=== PATIENT | male | born 1970 | race African-American/Black ===

== ENCOUNTER 2018-09-26 15:47 | Inpatient (IN) | payer MEDICAID ==
[~2018-09-26] VITALS: Ht 172.7 cm; Wt 78.0 kg
[~2018-09-26 15:47] MED LIST: DILT60TA35 PO; LOSA100T3 PO; METO25TA6 PO; REN800 PO
[2018-09-26] MEDS ORDERED: CLON0.3T MT (16:18)
[2018-09-26 19:28] LABS: BASOPHILS % 0.9 % (0.0-2.0); EOSINOPHILS % 3.8 % (0.0-5.0); HEMATOCRIT. 26.1 % (42.0-52.0); HEMOGLOBIN. 8.6 g/dL (14.0-18.0); LYMPHOCYTES % 23.5 % (20.0-50.0); MEAN CORPUSCULAR HEMOGLOBIN 28.4 pg (28.0-32.0); MEAN CORPUSCULAR VOLUME 86.7 fL (80.0-94.0); MEAN PLATELET VOLUME 7.7 fl (7.4-10.4); MONOCYTES % 8.5 % (2.0-8.0); NEUTROPHILS % 63.3 % (40.0-76.0); PLATELET 197 x1000/uL (130-400); RED BLOOD CELL COUNT 3.01 mill/uL (4.7-6.1); RED CELL DISTRIBUTION WIDTH 23.2 % (11.6-14.6)
[2018-09-26 19:34] LABS: CHLORIDE 95 mEq/L (98-107)
[2018-09-26 19:44] LABS: TOTAL IRON BINDING CAPACITY 188 ug/dL (250-450)
[2018-09-26] MEDS ORDERED: POTASSIUM CHLORIDE 20MEQ TABLET SR PO ONE (21:15)
[2018-09-26 22:10] LABS: PLATELET ESTIMATE NORMAL
[2018-09-27] VITALS (7 sets, daily range): BP systolic 19–194; BP diastolic 81–98
[2018-09-27] MEDS ORDERED: CLONIDINE 0.1MG TABLET PO ONE
[2018-09-27] MEDS ORDERED: CLONIDINE 0.3MG TABLET PO PRN (02:15)
[2018-09-27] MEDS ORDERED: CLONIDINE 0.3MG TABLET PO SCH ×2 (02:43→06:00)
[2018-09-27] MEDS: HYDROCODONE/ACETAMINOPHEN 5/325MG TABLET PO PRN ×2 (02:57→16:45)
[2018-09-27] MEDS: CLONIDINE 0.3MG TABLET PO SCH ×3 (02:58→21:14)
[2018-09-27] MEDS: FOLIC ACID/VITAMIN B COMP W-C TABLET PO SCH (08:43)
[2018-09-27] MEDS: SEVELAMER CARBONATE 800 MG TABLET PO SCH ×3 (08:43→17:18)
[2018-09-27] MEDS: METOPROLOL TARTRATE 50MG TABLET PO SCH ×2 (08:44→21:16)
[2018-09-27] MEDS: AMLODIPINE 10MG TABLET PO SCH (08:44)
[2018-09-27 13:09] LABS: BASOPHILS % 1.1 % (0.0-2.0); EOSINOPHILS % 4.5 % (0.0-5.0); HEMOGLOBIN. 7.5 g/dL (14.0-18.0); LYMPHOCYTES % 21.1 % (20.0-50.0); MEAN CORPUSCULAR HEMOGLOBIN 28.7 pg (28.0-32.0); MEAN CORPUSCULAR VOLUME 88.3 fL (80.0-94.0); MONOCYTES % 9.7 % (2.0-8.0); NEUTROPHILS % 63.6 % (40.0-76.0); PLATELET 148 x1000/uL (130-400); RED BLOOD CELL COUNT 2.61 mill/uL (4.7-6.1); RED CELL DISTRIBUTION WIDTH 22.5 % (11.6-14.6)
[2018-09-28] VITALS: BP 135/64
[2018-09-28 04:00] VITALS: BP 153/70
[2018-09-28 08:00] VITALS: BP 161/88
[2018-09-28] MEDS: FOLIC ACID/VITAMIN B COMP W-C TABLET PO SCH (08:17)
[2018-09-28] MEDS: SEVELAMER CARBONATE 800 MG TABLET PO SCH ×3 (08:17→18:45)
[2018-09-28 08:39] LABS: BASOPHILS % 1.2 % (0.0-2.0); EOSINOPHILS % 5.4 % (0.0-5.0); HEMATOCRIT. 23.1 % (42.0-52.0); HEMOGLOBIN. 7.5 g/dL (14.0-18.0); LYMPHOCYTES % 23.5 % (20.0-50.0); MEAN CORPUSCULAR HEMOGLOBIN 28.7 pg (28.0-32.0); MEAN CORPUSCULAR VOLUME 88.5 fL (80.0-94.0); MEAN PLATELET VOLUME 8.2 fl (7.4-10.4); MONOCYTES % 7.4 % (2.0-8.0); NEUTROPHILS % 62.5 % (40.0-76.0); PLATELET 137 x1000/uL (130-400); RED BLOOD CELL COUNT 2.61 mill/uL (4.7-6.1); RED CELL DISTRIBUTION WIDTH 22.8 % (11.6-14.6)
[2018-09-28] MEDS: METOPROLOL TARTRATE 50MG TABLET PO SCH ×2 (08:54→21:59)
[2018-09-28] MEDS: AMLODIPINE 10MG TABLET PO SCH (08:54)
[2018-09-28 12:00] VITALS: BP 163/82
[2018-09-28] MEDS: CLONIDINE 0.3MG TABLET PO SCH ×2 (13:57→21:59)
[2018-09-28 16:00] VITALS: BP 162/90
[2018-09-28] MEDS ORDERED: DIPHENHYDRAMINE 50MG/ML VIAL IV NR (16:45)
[2018-09-28 20:00] VITALS: BP 167/87
[2018-09-29] VITALS: BP 157/80
[2018-09-29 04:00] VITALS: BP 156/80
[2018-09-29] MEDS: CLONIDINE 0.3MG TABLET PO SCH (06:29)
[2018-09-29 08:13] VITALS: BP 162/88
[2018-09-29] MEDS: FOLIC ACID/VITAMIN B COMP W-C TABLET PO SCH (08:14)
[2018-09-29] MEDS: SEVELAMER CARBONATE 800 MG TABLET PO SCH (08:14)
[2018-09-29] MEDS: AMLODIPINE 10MG TABLET PO SCH (08:15)
[2018-09-29] MEDS: METOPROLOL TARTRATE 50MG TABLET PO SCH (08:15)
[2018-09-29 11:03] LABS: HEMATOCRIT 24.9 % (42.0-52.0); HEMOGLOBIN 8.3 g/dL (14.0-18.0)
[2018-09-29 11:11] LABS: INR 1.2; PROTHROMBIN TIME 11.7 sec (9.1-11.1)
[2018-09-29 11:12] VITALS: BP 139/65
[2018-09-29 12:00] VITALS: BP 139/65
== END 2018-09-29 12:20 | disposition home or self-care (01) | DRG 194 ==
LOC: ER 16:00 → 6WST 22:41 → EDBEDREQTM 22:50 → EDBEDREQ 22:50 → ENRESERV 23:02
PROVIDERS: ADMIT Internal Medicine; ATTEND Internal Medicine
PROC: 30253N1 (ICD-10-PCS; principal; 2018-09-28)
PROC: 5A1D70Z Performance of Urinary Filtration, Intermittent, Less than 6 Hours Per Day (ICD-10-PCS; 2018-09-28)
DX: I13.2 Hypertensive heart and chronic kidney disease with heart failure and with stage 5 chronic kidney disease, or end stage renal disease (principal); N18.6 End stage renal disease; I27.20 Pulmonary hypertension, unspecified; E44.1 Mild protein-calorie malnutrition; Z94.0 Kidney transplant status; E87.6 Hypokalemia; I50.9 Heart failure, unspecified; E78.5 Hyperlipidemia, unspecified; D63.8 Anemia in other chronic diseases classified elsewhere; Z99.2 Dependence on renal dialysis; Y84.8 Other medical procedures as the cause of abnormal reaction of the patient, or of later complication, without mention of misadventure at the time of the procedure; Y92.89 Other specified places as the place of occurrence of the external cause; Z68.26 Body mass index [BMI] 26.0-26.9, adult
CPT/HCPCS: 36415; 71045; 80048; 80051; 82668; 82728; 83540; 83550; 83880; 84484; 85014; 85018; 85049; 85384; 86850; 86900; 86920; 93005; 99285; J1200; J7050; P9016

== ENCOUNTER 2018-12-20 15:17 | Emergency (ER) | payer MEDICAID ==
[~2018-12-20] VITALS: Ht 172.7 cm; Wt 58.0 kg
[~2018-12-20 15:17] MED LIST changes: +CLON0.3T MT
[2018-12-20 16:24] VITALS: BP 128/71
== END 2018-12-21 00:03 | disposition left against medical advice (07) ==
LOC: ER 15:17
DX: Z53.21 Procedure and treatment not carried out due to patient leaving prior to being seen by health care provider (principal)

== ENCOUNTER 2018-12-24 13:20 | Emergency (ER) | payer MEDICAID ==
[~2018-12-24] VITALS: Ht 172.7 cm; Wt 61.0 kg
[2018-12-24 14:22] VITALS: BP 121/68
== END 2018-12-24 17:17 | disposition left against medical advice (07) ==
LOC: ER 13:20
DX: Z53.21 Procedure and treatment not carried out due to patient leaving prior to being seen by health care provider (principal)

== ENCOUNTER 2019-01-08 12:13 | Inpatient (IN) | payer MEDICAID ==
[~2019-01-08] VITALS: Ht 264.2 cm; Wt 62.6 kg
[2019-01-08 14:40] LABS: BG BASE EXCESS 2.9 mmol/L (-2.0-2.0); BG CARBOXYHEMOGLOBIN 0.6 % (0.5-1.5); BG DEOXYHEMOGLOBIN 6.5 % (0.0-5.0); BG FRACTION INSPIRED OXYGEN 21; BG HCO3 ACT 26.8 mmol/L (22.0-26.0); BG OXYGEN SATURATION 93.5 % (92.0-98.5); BG OXYHEMOGLOBIN 92.9 % (94.0-97.0); BG PCO2 38.4 mmHg (35.0-45.0); BG PH 7.462 (7.350-7.450); BG PO2 77.2 mmHg (75.0-100.0); BG SAMPLE SITE LEFT RADIAL; BG TOTAL HEMOGLOBIN 9.5 g/dL (12.0-18.0); BG VENT MODE ROOM AIR
[2019-01-08 14:41] LABS: HEMATOCRIT. 26.9 % (42.0-52.0); HEMOGLOBIN. 8.9 g/dL (14.0-18.0); MEAN CORPUSCULAR HEMOGLOBIN 31.1 pg (28.0-32.0); MEAN CORPUSCULAR VOLUME 94.4 fL (80.0-94.0); MEAN PLATELET VOLUME 8.5 fl (7.4-10.4); PLATELET 144 x1000/uL (130-400); RED BLOOD CELL COUNT 2.85 mill/uL (4.7-6.1); RED CELL DISTRIBUTION WIDTH 21.9 % (11.6-14.6)
[2019-01-08 14:50] LABS: PHOSPHORUS 4.8 mg/dL (2.5-4.9)
[2019-01-08 14:54] LABS: INR 1.1; PARTIAL THROMBOPLASTIN TIME 33.6 sec (23.4-31.0); PROTHROMBIN TIME 11.4 sec (9.1-11.1)
[2019-01-08 16:29] LABS: PLATELET ESTIMATE NORMAL
[2019-01-08] MEDS ORDERED: ACETAMINOPHEN 325MG TABLET PO PRN (17:00)
[2019-01-08] MEDS ORDERED: ONDANSETRON HCL 4MG/2ML INJ IV PRN (17:00)
[2019-01-08] MEDS ORDERED: CLONIDINE 0.1MG TABLET PO PRN (17:00)
[2019-01-08] MEDS ORDERED: PIPERACILLIN/TAZ 3.375G PREMIX 50 ML IV NR (18:15)
[2019-01-08] MEDS: HYDROCODONE/ACETAMINOPHEN 5/325MG TABLET PO PRN (19:04)
[2019-01-08 21:00] VITALS: BP 173/84
[2019-01-08] MEDS: METOPROLOL TARTRATE 50MG TABLET PO SCH (22:53)
[2019-01-08] MEDS ORDERED: VANCOMYCIN 1500MG in DEXTROSE 5% WATER 250ML IV NR (23:00)
[2019-01-09] VITALS (7 sets, daily range): BP systolic 135–174; BP diastolic 66–83
[2019-01-09] MEDS: HYDROCODONE/ACETAMINOPHEN 5/325MG TABLET PO PRN ×2 (03:03→11:33)
[2019-01-09 07:03] LABS: BASOPHILS % 0.6 % (0.0-2.0); HEMATOCRIT. 26.9 % (42.0-52.0); HEMOGLOBIN. 8.8 g/dL (14.0-18.0); LYMPHOCYTES % 7.4 % (20.0-50.0); MEAN CORPUSCULAR HEMOGLOBIN 31.1 pg (28.0-32.0); MEAN CORPUSCULAR VOLUME 94.5 fL (80.0-94.0); MEAN PLATELET VOLUME 9.1 fl (7.4-10.4); MONOCYTES % 9.5 % (2.0-8.0); NEUTROPHILS % 81.5 % (40.0-76.0); PLATELET 144 x1000/uL (130-400); RED BLOOD CELL COUNT 2.84 mill/uL (4.7-6.1); RED CELL DISTRIBUTION WIDTH 21.4 % (11.6-14.6)
[2019-01-09] MEDS ORDERED: DIPHENHYDRAMINE 50MG/ML VIAL IV SCH (08:15)
[2019-01-09] MEDS: METOPROLOL TARTRATE 50MG TABLET PO SCH ×2 (08:41→21:50)
[2019-01-09] MEDS: PIPERACILLIN/TAZ 3.375G PREMIX 50 ML IV SCH ×2 (08:41→21:23)
[2019-01-09] MEDS ORDERED: NIFEDIPINE XL 60MG TAB PO SCH (09:00)
[2019-01-09 11:44] LABS: INR 1.1; PARTIAL THROMBOPLASTIN TIME 32.8 sec (23.4-31.0); PROTHROMBIN TIME 10.9 sec (9.1-11.1)
[2019-01-09] MEDS: HYDRALAZINE HCL 50MG TABLET PO SCH ×2 (13:06→21:51)
[2019-01-09] MEDS: NIFEDIPINE XL 60MG TAB PO SCH (21:51)
[2019-01-09] MEDS: CLONIDINE 0.3MG TABLET PO SCH (21:51)
[2019-01-10] VITALS (7 sets, daily range): BP systolic 95–110; BP diastolic 57–64
[2019-01-10] MEDS: HYDRALAZINE HCL 50MG TABLET PO SCH (05:49)
[2019-01-10] MEDS: CLONIDINE 0.3MG TABLET PO SCH ×4 (05:54→22:29)
[2019-01-10 06:24] LABS: HEMATOCRIT. 25.4 % (42.0-52.0); HEMOGLOBIN. 8.5 g/dL (14.0-18.0); MEAN CORPUSCULAR HEMOGLOBIN 31.5 pg (28.0-32.0); MEAN CORPUSCULAR VOLUME 94.5 fL (80.0-94.0); PLATELET 135 x1000/uL (130-400); RED BLOOD CELL COUNT 2.69 mill/uL (4.7-6.1); RED CELL DISTRIBUTION WIDTH 21.8 % (11.6-14.6)
[2019-01-10] MEDS: METOPROLOL TARTRATE 50MG TABLET PO SCH ×2 (09:20→20:16)
[2019-01-10] MEDS: NIFEDIPINE XL 60MG TAB PO SCH ×2 (09:21→20:16)
[2019-01-10] MEDS: PIPERACILLIN/TAZ 3.375G PREMIX 50 ML IV SCH (09:21)
[2019-01-10 13:05] LABS: PLATELET ESTIMATE NORMAL
[2019-01-10] MEDS: SEVELAMER CARBONATE 800 MG TABLET PO SCH ×2 (14:13→17:21)
[2019-01-10] MEDS: HYDROCODONE/ACETAMINOPHEN 5/325MG TABLET PO PRN (22:24)
[2019-01-11] VITALS: BP 103/55
[2019-01-11 04:00] VITALS: BP 107/66
[2019-01-11] MEDS: CLONIDINE 0.3MG TABLET PO SCH ×3 (05:22→23:15)
[2019-01-11 06:55] LABS: HEMATOCRIT. 28.3 % (42.0-52.0); HEMOGLOBIN. 9.2 g/dL (14.0-18.0); MEAN CORPUSCULAR HEMOGLOBIN 31.2 pg (28.0-32.0); MEAN CORPUSCULAR VOLUME 95.4 fL (80.0-94.0); MEAN PLATELET VOLUME 8.8 fl (7.4-10.4); PLATELET 170 x1000/uL (130-400); RED BLOOD CELL COUNT 2.97 mill/uL (4.7-6.1); RED CELL DISTRIBUTION WIDTH 21.7 % (11.6-14.6)
[2019-01-11 07:45] VITALS: BP 134/70
[2019-01-11] MEDS: METOPROLOL TARTRATE 50MG TABLET PO SCH ×2 (08:27→23:15)
[2019-01-11] MEDS: NIFEDIPINE XL 60MG TAB PO SCH ×2 (08:27→23:15)
[2019-01-11] MEDS: SEVELAMER CARBONATE 800 MG TABLET PO SCH ×3 (08:27→18:51)
[2019-01-11 11:57] VITALS: BP 138/74
[2019-01-11 16:00] VITALS: BP 152/90
[2019-01-11 17:00] LABS: PLATELET ESTIMATE NORMAL
[2019-01-11] MEDS: DIPHENHYDRAMINE 50MG/ML VIAL IV PRN (19:44)
[2019-01-11 20:00] VITALS: BP 182/90
[2019-01-11] MEDS ORDERED: VANCOMYCIN 750 MG PREMIX 150 ML IV NR (23:00)
[2019-01-11] MEDS: HYDROCODONE/ACETAMINOPHEN 5/325MG TABLET PO PRN (23:26)
[2019-01-11] MEDS: HEPARIN SODIUM 1,000 UNIT/1ML VIAL IV NR ×2 (23:38→23:39)
[2019-01-12] VITALS: BP 157/75
[2019-01-12 04:00] VITALS: BP 123/54
[2019-01-12] MEDS: CLONIDINE 0.3MG TABLET PO SCH ×3 (06:05→21:16)
[2019-01-12 08:00] VITALS: BP 130/65
[2019-01-12] MEDS: NIFEDIPINE XL 60MG TAB PO SCH ×2 (08:16→21:15)
[2019-01-12] MEDS: SEVELAMER CARBONATE 800 MG TABLET PO SCH ×3 (08:16→18:40)
[2019-01-12] MEDS: METOPROLOL TARTRATE 50MG TABLET PO SCH ×2 (08:16→21:15)
[2019-01-12 12:00] VITALS: BP 113/57
[2019-01-12 16:00] VITALS: BP 100/67
[2019-01-12 20:00] VITALS: BP 115/70
[2019-01-12] MEDS: HYDROCODONE/ACETAMINOPHEN 5/325MG TABLET PO PRN (21:17)
[2019-01-13] VITALS (21 sets, daily range): BP systolic 109–153; BP diastolic 64–82
[2019-01-13] MEDS: CLONIDINE 0.3MG TABLET PO SCH ×3 (05:40→21:13)
[2019-01-13 07:09] LABS: HEMATOCRIT. 25.1 % (42.0-52.0); HEMOGLOBIN. 8.4 g/dL (14.0-18.0); MEAN CORPUSCULAR HEMOGLOBIN 31.4 pg (28.0-32.0); MEAN CORPUSCULAR VOLUME 93.9 fL (80.0-94.0); MEAN PLATELET VOLUME 8.6 fl (7.4-10.4); PLATELET 164 x1000/uL (130-400); RED BLOOD CELL COUNT 2.67 mill/uL (4.7-6.1); RED CELL DISTRIBUTION WIDTH 20.6 % (11.6-14.6)
[2019-01-13] MEDS: SEVELAMER CARBONATE 800 MG TABLET PO SCH ×3 (08:10→18:42)
[2019-01-13] MEDS: NIFEDIPINE XL 60MG TAB PO SCH ×2 (09:00→21:13)
[2019-01-13] MEDS: METOPROLOL TARTRATE 50MG TABLET PO SCH ×2 (09:00→21:13)
[2019-01-13] MEDS ORDERED: SODIUM BICARBONATE 4% (2.4MEQ) 5ML VIAL IV ONE (09:55)
[2019-01-13] MEDS ORDERED: LIDOCAINE HCL 1% 20ML VIAL (Pyxis) INJ ONE (09:55)
[2019-01-13] MEDS ORDERED: IOHEXOL-300 100 ML BOTTLE ONE (09:56)
[2019-01-13] MEDS ORDERED: HEPARIN 1000 UNITS/ML 10ML ONE (09:56)
[2019-01-13] MEDS ORDERED: FENTANYL CITRATE/PF 50MCG/ML 2ML VIAL IV ONE ×3 (10:30→11:05)
[2019-01-13] MEDS ORDERED: MIDAZOLAM HCL 2 MG/2 ML VIAL IV ONE (10:30)
[2019-01-13] MEDS ORDERED: FENTANYL CITRATE/PF 50MCG/ML 2ML VIAL ONE (10:36)
[2019-01-13] MEDS ORDERED: MIDAZOLAM HCL 2 MG/2 ML VIAL ONE (10:48)
[2019-01-13 13:29] LABS: PLATELET ESTIMATE NORMAL
[2019-01-13] MEDS: DIPHENHYDRAMINE 50MG/ML VIAL IV PRN (14:07)
[2019-01-13] MEDS ORDERED: VANCOMYCIN 500 MG PREMIX 100 ML IV NR (17:00)
[2019-01-13] MEDS ORDERED: EPOETIN ALFA 10000UNITS/ML VIAL SUBCUT NR (21:00)
[2019-01-13] MEDS ORDERED: HYDROCODONE/ACETAMINOPHEN 5/325MG TABLET PO PRN (21:45)
[2019-01-14] VITALS: BP 167/77
[2019-01-14 04:00] VITALS: BP 125/70
[2019-01-14] MEDS: CLONIDINE 0.3MG TABLET PO SCH (05:50)
[2019-01-14 08:00] VITALS: BP 127/64
[2019-01-14] MEDS: SEVELAMER CARBONATE 800 MG TABLET PO SCH (09:16)
[2019-01-14] MEDS: METOPROLOL TARTRATE 50MG TABLET PO SCH (09:16)
[2019-01-14] MEDS: NIFEDIPINE XL 60MG TAB PO SCH (09:17)
[2019-01-14 12:00] VITALS: BP 131/69
[2019-01-14 12:16] VITALS: BP 131/69
== END 2019-01-14 13:36 | disposition home or self-care (01) | DRG 181 ==
LOC: ER 12:58 → 7WST 15:55 → EDBEDREQ 16:00 → EDBEDREQTM 16:00 → ENRESERV 20:18 → 7WST 22:04
PROVIDERS: ADMIT Internal Medicine; ATTEND Internal Medicine
PROC: 5A1D70Z Performance of Urinary Filtration, Intermittent, Less than 6 Hours Per Day (ICD-10-PCS; principal; 2019-01-09)
PROC: 06HY33Z Insertion of Infusion Device into Lower Vein, Percutaneous Approach (ICD-10-PCS; 2019-01-09)
PROC: B54CZZA Ultrasonography of Left Lower Extremity Veins, Guidance (ICD-10-PCS; 2019-01-09)
PROC: 5A1D70Z Performance of Urinary Filtration, Intermittent, Less than 6 Hours Per Day (ICD-10-PCS; 2019-01-11)
PROC: 047Y3ZZ Dilation of Lower Artery, Percutaneous Approach (ICD-10-PCS; 2019-01-13)
PROC: 5A1D70Z Performance of Urinary Filtration, Intermittent, Less than 6 Hours Per Day (ICD-10-PCS; 2019-01-13)
PROC: B51W1ZZ Fluoroscopy of Dialysis Shunt/Fistula using Low Osmolar Contrast (ICD-10-PCS; 2019-01-13)
PROC: B5191ZA Fluoroscopy of Inferior Vena Cava using Low Osmolar Contrast, Guidance (ICD-10-PCS; 2019-01-13)
PROC: 06CY3ZZ Extirpation of Matter from Lower Vein, Percutaneous Approach (ICD-10-PCS; 2019-01-13)
PROC: B5181ZA Fluoroscopy of Superior Vena Cava using Low Osmolar Contrast, Guidance (ICD-10-PCS; 2019-01-13)
PROC: B41F1ZZ Fluoroscopy of Right Lower Extremity Arteries using Low Osmolar Contrast (ICD-10-PCS; 2019-01-13)
PROC: B51B1ZA Fluoroscopy of Right Lower Extremity Veins using Low Osmolar Contrast, Guidance (ICD-10-PCS; 2019-01-13)
PROC: 067Y3ZZ Dilation of Lower Vein, Percutaneous Approach (ICD-10-PCS; 2019-01-13)
PROC: 04CY3ZZ Extirpation of Matter from Lower Artery, Percutaneous Approach (ICD-10-PCS; 2019-01-13)
DX: T82.7XXA Infection and inflammatory reaction due to other cardiac and vascular devices, implants and grafts, initial encounter (principal); A41.1 Sepsis due to other specified staphylococcus; I13.2 Hypertensive heart and chronic kidney disease with heart failure and with stage 5 chronic kidney disease, or end stage renal disease; N17.9 Acute kidney failure, unspecified; E87.8 Other disorders of electrolyte and fluid balance, not elsewhere classified; T82.858A Stenosis of other vascular prosthetic devices, implants and grafts, initial encounter; N18.6 End stage renal disease; Y83.8 Other surgical procedures as the cause of abnormal reaction of the patient, or of later complication, without mention of misadventure at the time of the procedure; Y92.238 Other place in hospital as the place of occurrence of the external cause; E87.1 Hypo-osmolality and hyponatremia; I50.9 Heart failure, unspecified; R59.0 Localized enlarged lymph nodes; Y83.2 Surgical operation with anastomosis, bypass or graft as the cause of abnormal reaction of the patient, or of later complication, without mention of misadventure at the time of the procedure; D63.8 Anemia in other chronic diseases classified elsewhere; E78.5 Hyperlipidemia, unspecified; E87.6 Hypokalemia; Z94.0 Kidney transplant status; Y92.89 Other specified places as the place of occurrence of the external cause; Z99.2 Dependence on renal dialysis; Z88.8 Allergy status to other drugs, medicaments and biological substances; Z79.899 Other long term (current) drug therapy
CPT/HCPCS: 36415; 36569; 36600; 36905; 71045; 76937; 77001; 80048; 80202; 82375; 82805; 83735; 84100; 84145; 87077; 87186; 93005; 93306; 93970; 96374; 96375; 99152; 99153; 99285; C1725; C1752; C1766; C1769; C1887; C2630; J0885; J1200; J1644; J2250; J2543; J3010; J3370; J3490; J7050; J7060; Q9967; G0500

== ENCOUNTER 2019-01-31 13:50 | Inpatient (IN) | payer MEDICAID ==
[2019-01-31] VITALS (16 sets, daily range): BP systolic 80–135; BP diastolic 40–58
[~2019-01-31] VITALS: Ht 172.7 cm; Wt 62.7 kg
[2019-01-31] MEDS ORDERED: SODIUM CHLORIDE 0.9% 1,000 ML IV ONE (14:25)
[2019-01-31] MEDS ORDERED: SODIUM CHLORIDE 0.9% 1000ML BAG (SEPSIS BOLUS) IV ONE (14:30)
[2019-01-31] MEDS ORDERED: MORPHINE SULFATE 4 MG/ML CPJ (NOT FOR IM USE) IV STA ×3 (14:48→17:04)
[2019-01-31] MEDS ORDERED: ONDANSETRON HCL 4MG/2ML INJ IV STA ×2 (14:48→17:04)
[2019-01-31 14:56] LABS: HEMATOCRIT. 32.1 % (42.0-52.0); HEMOGLOBIN. 10.3 g/dL (14.0-18.0); MEAN CORPUSCULAR HEMOGLOBIN 32.1 pg (28.0-32.0); MEAN CORPUSCULAR VOLUME 100.1 fL (80.0-94.0); MEAN PLATELET VOLUME 9.4 fl (7.4-10.4); PLATELET 198 x1000/uL (130-400); RED BLOOD CELL COUNT 3.21 mill/uL (4.7-6.1)
[2019-01-31 15:00] LABS: CHLORIDE 100 mEq/L (98-107)
[2019-01-31] MEDS ORDERED: NOREPINEPHRINE 4MG/250ML PMX 250 ML IV ONE (15:00)
[2019-01-31] MEDS ORDERED: INSULIN REGULAR (HUMULIN R) 300UNITS/3ML IV ONE (15:15)
[2019-01-31] MEDS ORDERED: PIPERACILLIN/TAZ 3.375G PREMIX 50 ML IV ONE (15:15)
[2019-01-31] MEDS ORDERED: SODIUM BICARBONATE 8.4% 1 MEQ/ML 50ML SYR IV ONE (15:15)
[2019-01-31] MEDS ORDERED: CALCIUM GLUCONATE 1,000 MG in DEXT 5% WATER 100 ML IV ONE (15:15)
[2019-01-31] MEDS ORDERED: DEXTROSE 50% WATER 50ML SYRINGE IV ONE (15:15)
[2019-01-31] MEDS ORDERED: VANCOMYCIN 1 G PREMIX 200 ML IV ONE (15:15)
[2019-01-31] MEDS ORDERED: CALCIUM CHLORIDE 1GM/10ML SYR IV ONE (15:21)
[2019-01-31] MEDS ORDERED: ONDANSETRON HCL 4MG/2ML INJ ONE (15:25)
[2019-01-31] MEDS ORDERED: MORPHINE SULFATE 4 MG/ML CPJ (NOT FOR IM USE) IV ONE (15:28)
[2019-01-31 15:54] LABS: NUCLEATED RED BLOOD CELLS 1 /100 WBC; PLATELET ESTIMATE NORMAL
[2019-01-31] MEDS ORDERED: ALBUTEROL (0.083%) 2.5MG/3ML NEB HHN STA ×2 (17:13)
[2019-01-31] MEDS ORDERED: CALCIUM CHLORIDE 1,000 MG in DEXT 5% WATER 90 ML IV ONE (17:15)
[2019-01-31] MEDS ORDERED: ALBUTEROL (0.5%) 2.5MG/0.5ML NEB HHN ONE (17:18)
[2019-01-31] MEDS ORDERED: ALBUTEROL (0.083%) 2.5MG/3ML NEB ONE (17:19)
[2019-01-31] MEDS ORDERED: PROPOFOL 200MG/20ML VIAL IV ONE (17:45)
[2019-01-31] MEDS ORDERED: ETOMIDATE 2MG/ML 10ML VIAL IV ONE (17:45)
[2019-01-31] MEDS ORDERED: PROPOFOL 10MG/ML 100ML 100 ML IV SCH (17:45)
[2019-01-31] MEDS ORDERED: VECURONIUM BROMIDE 10 MG/VIAL IV ONE (17:45)
[2019-01-31] MEDS ORDERED: IOHEXOL-350 100 ML BOTTLE ONE (18:20)
[2019-01-31 18:28] LABS: BG BASE EXCESS -7.1 mmol/L (-2.0-2.0); BG CARBOXYHEMOGLOBIN 0.7 % (0.5-1.5); BG DEOXYHEMOGLOBIN 7.5 % (0.0-5.0); BG FRACTION INSPIRED OXYGEN 100; BG HCO3 ACT 21.3 mmol/L (22.0-26.0); BG OXYGEN SATURATION 92.4 % (92.0-98.5); BG OXYHEMOGLOBIN 91.8 % (94.0-97.0); BG PCO2 57.3 mmHg (35.0-45.0); BG PH 7.189 (7.350-7.450); BG PO2 91.5 mmHg (75.0-100.0); BG SAMPLE SITE RIGHT BRACHIAL; BG TIDAL VOLUME(mL) 500 mL; BG TOTAL HEMOGLOBIN 11.3 g/dL (12.0-18.0); BG VENT MODE VENT - A/C; BG VENT RATE 14 set
[2019-01-31 20:50] LABS: BG BASE EXCESS -3.7 mmol/L (-2.0-2.0); BG CARBOXYHEMOGLOBIN 0.6 % (0.5-1.5); BG DEOXYHEMOGLOBIN 16.4 % (0.0-5.0); BG FRACTION INSPIRED OXYGEN 100; BG HCO3 ACT 24.1 mmol/L (22.0-26.0); BG METHEMOGLOBIN 0.4 % (0.0-1.5); BG OXYGEN SATURATION 83.4 % (92.0-98.5); BG OXYHEMOGLOBIN 82.6 % (94.0-97.0); BG PCO2 55.9 mmHg (35.0-45.0); BG PH 7.252 (7.350-7.450); BG PO2 64.5 mmHg (75.0-100.0); BG SAMPLE SITE RIGHT RADIAL; BG TIDAL VOLUME(mL) 500 mL; BG TOTAL HEMOGLOBIN 12.1 g/dL (12.0-18.0); BG VENT MODE VENT - A/C; BG VENT RATE 14 set
[2019-01-31] MEDS ORDERED: ONDANSETRON HCL 4MG/2ML INJ IV PRN (21:30)
[2019-01-31] MEDS ORDERED: PIPERACILLIN/TAZOBACTAM 2.25 G in DEXTROSE 5% WATER 50 ML IV SCH (22:00)
[2019-01-31] MEDS ORDERED: NOREPINEPHRINE 32 MG in DEXT 5% WATER 468 ML IV PRN (22:30)
[2019-01-31] MEDS: PROPOFOL 10MG/ML 100ML 100 ML IV SCH (22:32)
[2019-02-01] VITALS (91 sets, daily range): BP systolic 88–152; BP diastolic 32–76
[2019-02-01] MEDS ORDERED: OMEP20TA15 PO (01:14)
[2019-02-01] MEDS ORDERED: CLON0.3T PO (01:14)
[2019-02-01] MEDS ORDERED: SEVE800T8 MT (01:14)
[2019-02-01] MEDS ORDERED: VANCOMYCIN 750 MG PREMIX 150 ML IV NR (02:00)
[2019-02-01] MEDS: PROPOFOL 10MG/ML 100ML 100 ML IV SCH ×2 (02:07→07:21)
[2019-02-01] MEDS: PIPERACILLIN/TAZ 2.25G PREMIX 50 ML IV SCH ×4 (02:07→21:44)
[2019-02-01 05:41] LABS: BASOPHILS % 0.8 % (0.0-2.0); EOSINOPHILS % 0.5 % (0.0-5.0); HEMATOCRIT. 29.8 % (42.0-52.0); HEMOGLOBIN. 9.8 g/dL (14.0-18.0); LYMPHOCYTES % 12.8 % (20.0-50.0); MEAN CORPUSCULAR VOLUME 97.5 fL (80.0-94.0); MEAN PLATELET VOLUME 8.9 fl (7.4-10.4); NEUTROPHILS % 78.9 % (40.0-76.0); PLATELET 197 x1000/uL (130-400); RED BLOOD CELL COUNT 3.06 mill/uL (4.7-6.1)
[2019-02-01] MEDS ORDERED: PHENYLEPHRINE 80 MG in DEXT 5% WATER 492 ML IV PRN (06:45)
[2019-02-01 08:39] LABS: BG BASE EXCESS 1.2 mmol/L (-2.0-2.0); BG CARBOXYHEMOGLOBIN 0.3 % (0.5-1.5); BG DEOXYHEMOGLOBIN 1.1 % (0.0-5.0); BG FRACTION INSPIRED OXYGEN 100; BG HCO3 ACT 25.6 mmol/L (22.0-26.0); BG METHEMOGLOBIN 0.5 % (0.0-1.5); BG OXYGEN SATURATION 98.9 % (92.0-98.5); BG OXYHEMOGLOBIN 98.1 % (94.0-97.0); BG PCO2 39.8 mmHg (35.0-45.0); BG PH 7.426 (7.350-7.450); BG PO2 179.4 mmHg (75.0-100.0); BG SAMPLE SITE RIGHT BRACHIAL; BG TIDAL VOLUME(mL) 500 mL; BG TOTAL HEMOGLOBIN 10.2 g/dL (12.0-18.0); BG VENT MODE VENT - A/C; BG VENT RATE 18 set
[2019-02-01] MEDS: PANTOPRAZOLE SODIUM 40 MG/VIAL IV SCH (09:25)
[2019-02-01] MEDS ORDERED: IPRATROPIUM/ALBUTEROL 0.5-3(2.5)MG/3ML NEB HHN PRN (10:00)
[2019-02-01] MEDS: ENOXAPARIN 30MG/0.3ML SYR SUBCUT SCH (12:03)
[2019-02-01] MEDS: BUDESONIDE 0.5MG/2ML NEB HHN SCH (12:10)
[2019-02-01] MEDS: IPRATROPIUM/ALBUTEROL 0.5-3(2.5)MG/3ML NEB HHN SCH ×3 (12:10→20:53)
[2019-02-01] MEDS: PROPOFOL 10MG/ML 100ML 100 ML IV PRN ×2 (12:17→18:29)
[2019-02-01] MEDS ORDERED: VANCOMYCIN 1 G PREMIX 200 ML IV SCH (16:00)
[2019-02-02] VITALS (96 sets, daily range): BP systolic 94–165; BP diastolic 48–92
[2019-02-02] MEDS: IPRATROPIUM/ALBUTEROL 0.5-3(2.5)MG/3ML NEB HHN SCH ×5 (01:03→21:22)
[2019-02-02] MEDS: BUDESONIDE 0.5MG/2ML NEB HHN SCH ×3 (01:03→21:22)
[2019-02-02 05:17] LABS: EOSINOPHILS % 3.2 % (0.0-5.0); HEMATOCRIT. 25.5 % (42.0-52.0); HEMOGLOBIN. 8.5 g/dL (14.0-18.0); LYMPHOCYTES % 14.2 % (20.0-50.0); MEAN CORPUSCULAR HEMOGLOBIN 32.5 pg (28.0-32.0); MEAN CORPUSCULAR VOLUME 97.9 fL (80.0-94.0); MEAN PLATELET VOLUME 9.1 fl (7.4-10.4); MONOCYTES % 10.7 % (2.0-8.0); NEUTROPHILS % 70.9 % (40.0-76.0); PLATELET 135 x1000/uL (130-400); RED BLOOD CELL COUNT 2.61 mill/uL (4.7-6.1); RED CELL DISTRIBUTION WIDTH 21.8 % (11.6-14.6)
[2019-02-02] MEDS: PIPERACILLIN/TAZ 2.25G PREMIX 50 ML IV SCH ×3 (05:41→21:32)
[2019-02-02] MEDS: PROPOFOL 10MG/ML 100ML 100 ML IV PRN (06:14)
[2019-02-02 07:21] LABS: BG BASE EXCESS 3.1 mmol/L (-2.0-2.0); BG CARBOXYHEMOGLOBIN 0.4 % (0.5-1.5); BG DEOXYHEMOGLOBIN 1.3 % (0.0-5.0); BG HCO3 ACT 26.5 mmol/L (22.0-26.0); BG METHEMOGLOBIN 0.3 % (0.0-1.5); BG OXYGEN SATURATION 98.7 % (92.0-98.5); BG PCO2 35.6 mmHg (35.0-45.0); BG PO2 132.5 mmHg (75.0-100.0); BG SAMPLE SITE RIGHT BRACHIAL; BG TIDAL VOLUME(mL) 500 mL; BG VENT MODE VENT - A/C; BG VENT RATE 18 set
[2019-02-02] MEDS: PANTOPRAZOLE SODIUM 40 MG/VIAL IV SCH (09:43)
[2019-02-02] MEDS: ENOXAPARIN 30MG/0.3ML SYR SUBCUT SCH (09:43)
[2019-02-02 12:49] LABS: BG BASE EXCESS -1.3 mmol/L (-2.0-2.0); BG CARBOXYHEMOGLOBIN 0.3 % (0.5-1.5); BG DEOXYHEMOGLOBIN 11.8 % (0.0-5.0); BG FRACTION INSPIRED OXYGEN 40; BG HCO3 ACT 24.1 mmol/L (22.0-26.0); BG METHEMOGLOBIN 0.3 % (0.0-1.5); BG OXYGEN SATURATION 88.1 % (92.0-98.5); BG OXYHEMOGLOBIN 87.6 % (94.0-97.0); BG PCO2 43.5 mmHg (35.0-45.0); BG PH 7.361 (7.350-7.450); BG PO2 71.5 mmHg (75.0-100.0); BG PRESSURE SUPPORT 8; BG SAMPLE SITE LEFT BRACHIAL; BG TOTAL HEMOGLOBIN 9.2 g/dL (12.0-18.0); BG VENT MODE VENT - CPAP
[2019-02-02] MEDS: LORAZEPAM 2MG/ML CPJ IV PRN ×3 (13:01→22:46)
[2019-02-03] VITALS (88 sets, daily range): BP systolic 109–177; BP diastolic 48–101
[2019-02-03] MEDS: MORPHINE SULFATE 4 MG/ML CPJ (NOT FOR IM USE) IV PRN (00:49)
[2019-02-03] MEDS: IPRATROPIUM/ALBUTEROL 0.5-3(2.5)MG/3ML NEB HHN SCH ×7 (01:43→20:42)
[2019-02-03] MEDS: BUDESONIDE 0.5MG/2ML NEB HHN SCH ×3 (01:43→20:43)
[2019-02-03] MEDS: LORAZEPAM 2MG/ML CPJ IV PRN (04:08)
[2019-02-03 05:54] LABS: BASOPHILS % 1.3 % (0.0-2.0); EOSINOPHILS % 4.3 % (0.0-5.0); HEMATOCRIT. 27.2 % (42.0-52.0); HEMOGLOBIN. 8.8 g/dL (14.0-18.0); LYMPHOCYTES % 10.7 % (20.0-50.0); MEAN CORPUSCULAR VOLUME 98.9 fL (80.0-94.0); MEAN PLATELET VOLUME 9.4 fl (7.4-10.4); MONOCYTES % 13.1 % (2.0-8.0); NEUTROPHILS % 70.6 % (40.0-76.0); PLATELET 116 x1000/uL (130-400); RED BLOOD CELL COUNT 2.75 mill/uL (4.7-6.1); RED CELL DISTRIBUTION WIDTH 21.6 % (11.6-14.6)
[2019-02-03] MEDS: PIPERACILLIN/TAZ 2.25G PREMIX 50 ML IV SCH ×3 (05:59→21:22)
[2019-02-03] MEDS: PANTOPRAZOLE SODIUM 40 MG/VIAL IV SCH (08:17)
[2019-02-03] MEDS: ENOXAPARIN 30MG/0.3ML SYR SUBCUT SCH (08:19)
[2019-02-03] MEDS ORDERED: DIPHENHYDRAMINE 50MG/ML VIAL IV PRN (09:30)
[2019-02-03] MEDS: DIPHENHYDRAMINE 50MG/ML VIAL IV PRN ×2 (15:07→20:52)
[2019-02-03] MEDS ORDERED: VANCOMYCIN 1 G PREMIX 200 ML IV NR (16:00)
[2019-02-03] MEDS: CLONIDINE 0.1MG TABLET PO PRN (21:29)
[2019-02-03] MEDS: EPOETIN ALFA 4000UNITS/ML VIAL SUBCUT SCH (22:53)
[2019-02-04] VITALS (28 sets, daily range): BP systolic 150–178; BP diastolic 70–84
[2019-02-04] MEDS: IPRATROPIUM/ALBUTEROL 0.5-3(2.5)MG/3ML NEB HHN SCH ×5 (00:22→20:10)
[2019-02-04] MEDS: LORAZEPAM 2MG/ML CPJ IV PRN (02:06)
[2019-02-04] MEDS: PIPERACILLIN/TAZ 2.25G PREMIX 50 ML IV SCH ×3 (05:14→20:50)
[2019-02-04 05:55] LABS: BASOPHILS % 1.2 % (0.0-2.0); EOSINOPHILS % 4.3 % (0.0-5.0); HEMOGLOBIN. 8.2 g/dL (14.0-18.0); LYMPHOCYTES % 14.2 % (20.0-50.0); MEAN CORPUSCULAR HEMOGLOBIN 32.2 pg (28.0-32.0); MEAN CORPUSCULAR VOLUME 97.9 fL (80.0-94.0); MEAN PLATELET VOLUME 8.9 fl (7.4-10.4); MONOCYTES % 11.7 % (2.0-8.0); NEUTROPHILS % 68.6 % (40.0-76.0); PLATELET 116 x1000/uL (130-400); RED BLOOD CELL COUNT 2.55 mill/uL (4.7-6.1); RED CELL DISTRIBUTION WIDTH 20.8 % (11.6-14.6)
[2019-02-04] MEDS: CLONIDINE 0.1MG TABLET PO PRN (06:06)
[2019-02-04] MEDS: BUDESONIDE 0.5MG/2ML NEB HHN SCH (07:28)
[2019-02-04] MEDS: ENOXAPARIN 30MG/0.3ML SYR SUBCUT SCH (08:54)
[2019-02-04] MEDS: LOSARTAN POTASSIUM 100 MG TABLET PO SCH (08:54)
[2019-02-04] MEDS: PANTOPRAZOLE SODIUM 40 MG/VIAL IV SCH (08:54)
[2019-02-04] MEDS: CLONIDINE 0.2MG TABLET PO SCH ×2 (15:40→20:50)
[2019-02-05] VITALS (7 sets, daily range): BP systolic 136–161; BP diastolic 61–81
[2019-02-05] MEDS: IPRATROPIUM/ALBUTEROL 0.5-3(2.5)MG/3ML NEB HHN SCH ×6 (01:17→21:16)
[2019-02-05] MEDS: PIPERACILLIN/TAZ 2.25G PREMIX 50 ML IV SCH ×3 (05:35→21:08)
[2019-02-05] MEDS: CLONIDINE 0.2MG TABLET PO SCH ×3 (05:35→21:08)
[2019-02-05] MEDS: LOSARTAN POTASSIUM 100 MG TABLET PO SCH (08:45)
[2019-02-05 09:21] LABS: BASOPHILS % 1.7 % (0.0-2.0); HEMATOCRIT. 28.6 % (42.0-52.0); HEMOGLOBIN. 9.2 g/dL (14.0-18.0); LYMPHOCYTES % 26.3 % (20.0-50.0); MEAN CORPUSCULAR HEMOGLOBIN 31.9 pg (28.0-32.0); MEAN CORPUSCULAR VOLUME 98.8 fL (80.0-94.0); MEAN PLATELET VOLUME 8.7 fl (7.4-10.4); MONOCYTES % 13.1 % (2.0-8.0); NEUTROPHILS % 53.9 % (40.0-76.0); PLATELET 141 x1000/uL (130-400); RED CELL DISTRIBUTION WIDTH 21.3 % (11.6-14.6)
[2019-02-05] MEDS: DIPHENHYDRAMINE 50MG/ML VIAL IV PRN (09:37)
[2019-02-05] MEDS: MORPHINE SULFATE 4 MG/ML CPJ (NOT FOR IM USE) IV PRN (10:02)
[2019-02-05] MEDS: PANTOPRAZOLE SODIUM 40 MG/VIAL IV SCH (12:44)
[2019-02-05] MEDS: ENOXAPARIN 30MG/0.3ML SYR SUBCUT SCH (12:44)
[2019-02-05] MEDS: DILTIAZEM HCL 60MG TABLET PO SCH ×2 (14:00→21:07)
[2019-02-05] MEDS: METOPROLOL TARTRATE 25MG TABLET PO SCH ×2 (16:10→21:08)
[2019-02-05] MEDS ORDERED: VANCOMYCIN 750 MG PREMIX 150 ML IV NR (21:00)
[2019-02-05] MEDS: EPOETIN ALFA 4000UNITS/ML VIAL SUBCUT SCH (21:08)
[2019-02-06] VITALS: BP 117/65
[2019-02-06] MEDS: LORAZEPAM 2MG/ML CPJ IV PRN (00:24)
[2019-02-06] MEDS: IPRATROPIUM/ALBUTEROL 0.5-3(2.5)MG/3ML NEB HHN SCH ×3 (00:47→07:44)
[2019-02-06 04:00] VITALS: BP 122/67
[2019-02-06] MEDS: CLONIDINE 0.2MG TABLET PO SCH (05:36)
[2019-02-06] MEDS: DILTIAZEM HCL 60MG TABLET PO SCH (05:36)
[2019-02-06] MEDS: PIPERACILLIN/TAZ 2.25G PREMIX 50 ML IV SCH (05:37)
[2019-02-06 08:00] VITALS: BP 119/55
[2019-02-06] MEDS: LOSARTAN POTASSIUM 100 MG TABLET PO SCH (08:32)
[2019-02-06] MEDS: METOPROLOL TARTRATE 25MG TABLET PO SCH (08:32)
[2019-02-06] MEDS: PANTOPRAZOLE SODIUM 40 MG/VIAL IV SCH (08:33)
[2019-02-06] MEDS: ENOXAPARIN 30MG/0.3ML SYR SUBCUT SCH (08:33)
[2019-02-06 09:46] VITALS: BP 119/55
== END 2019-02-06 10:47 | disposition home or self-care (01) | DRG 720 ==
LOC: ER 13:50 → CVICU 17:03 → EDBEDREQSVC 17:33 → EDBEDREQ 17:33 → EDBEDREQTM 17:33 → ENRESERV 18:28 → 8WST 02-04 11:17
PROVIDERS: ADMIT Internal Medicine; ATTEND Internal Medicine
PROC: 5A1945Z Respiratory Ventilation, 24-96 Consecutive Hours (ICD-10-PCS; principal; 2019-01-31)
PROC: 0BH17EZ Insertion of Endotracheal Airway into Trachea, Via Natural or Artificial Opening (ICD-10-PCS; 2019-01-31)
PROC: 06HY33Z Insertion of Infusion Device into Lower Vein, Percutaneous Approach (ICD-10-PCS; 2019-01-31)
DX: A41.9 Sepsis, unspecified organism (principal); J96.00 Acute respiratory failure, unspecified whether with hypoxia or hypercapnia; R65.21 Severe sepsis with septic shock; I13.2 Hypertensive heart and chronic kidney disease with heart failure and with stage 5 chronic kidney disease, or end stage renal disease; J18.9 Pneumonia, unspecified organism; E87.2 Acidosis; E46 Unspecified protein-calorie malnutrition; R18.8 Other ascites; N18.6 End stage renal disease; I42.9 Cardiomyopathy, unspecified; I50.810 Right heart failure, unspecified; E87.5 Hyperkalemia; E87.70 Fluid overload, unspecified; N28.89 Other specified disorders of kidney and ureter; N26.9 Renal sclerosis, unspecified; E78.5 Hyperlipidemia, unspecified; J43.9 Emphysema, unspecified; D64.9 Anemia, unspecified; I08.0 Rheumatic disorders of both mitral and aortic valves; K76.1 Chronic passive congestion of liver; Z86.79 Personal history of other diseases of the circulatory system; Z94.0 Kidney transplant status; Z99.2 Dependence on renal dialysis; Z88.9 Allergy status to unspecified drugs, medicaments and biological substances; Z68.21 Body mass index [BMI] 21.0-21.9, adult
CPT/HCPCS: 36415; 36600; 71045; 71275; 74177; 80048; 80202; 82375; 82805; 83605; 83880; 84478; 84484; 87070; 92610; 93005; 93970; 94640; 96374; 96375; 97162; 99291; C9113; J0610; J0885; J1200; J1650; J1815; J2060; J2270; J2405; J2543; J2704; J3370; J3490; J7030; J7050; J7060; J7611; J7620; J7626; Q9967

== ENCOUNTER 2019-06-15 19:48 | Emergency (ER) | payer MEDICAID ==
[~2019-06-15] VITALS: Ht 172.7 cm; Wt 61.0 kg
[~2019-06-15 19:48] MED LIST changes: -CLON0.3T MT; +CLON0.3T PO; -LOSA100T3 PO
[2019-06-15] MEDS ORDERED: ACETAMINOPHEN WITH CODEINE 300/30MG TABLET PO STA (20:13)
[2019-06-15] MEDS ORDERED: DILTIAZEM HCL 120MG CAPSULE CD 24HR PO ONE (20:15)
[2019-06-15 21:09] LABS: CHLORIDE 100 mEq/L (98-107); EOSINOPHILS % 4.8 % (0.0-5.0); HEMATOCRIT. 31.4 % (42.0-52.0); HEMOGLOBIN. 10.4 g/dL (14.0-18.0); LYMPHOCYTES % 26.5 % (20.0-50.0); MEAN CORPUSCULAR HEMOGLOBIN 29.9 pg (28.0-32.0); MEAN CORPUSCULAR VOLUME 90.7 fL (80.0-94.0); MEAN PLATELET VOLUME 8.4 fl (7.4-10.4); MONOCYTES % 10.5 % (2.0-8.0); NEUTROPHILS % 56.2 % (40.0-76.0); PLATELET 153 x1000/uL (130-400); RED BLOOD CELL COUNT 3.46 mill/uL (4.7-6.1)
[2019-06-15] MEDS ORDERED: HYDROCODONE/ACETAMINOPHEN 5/325MG TABLET PO ONE (22:15)
[2019-06-15 22:35] VITALS: BP 132/72
== END 2019-06-15 23:06 | disposition home or self-care (01) ==
LOC: ER 19:48
DX: I12.0 Hypertensive chronic kidney disease with stage 5 chronic kidney disease or end stage renal disease (principal); N18.6 End stage renal disease; R07.89 Other chest pain; Z99.2 Dependence on renal dialysis; Z79.899 Other long term (current) drug therapy; Z88.8 Allergy status to other drugs, medicaments and biological substances
CPT/HCPCS: 36415; 71045; 84484; 93005; 99284

== ENCOUNTER 2019-06-19 18:43 | Inpatient (IN) | payer MEDICAID ==
[~2019-06-19] VITALS: Ht 172.7 cm; Wt 68.7 kg
[2019-06-19] MEDS ORDERED: SODIUM CHLORIDE 0.9% 1,000 ML IV ONE (20:50)
[2019-06-19] MEDS ORDERED: ASPIRIN 81MG TABLET PO ONE (21:00)
[2019-06-19 21:46] LABS: BASOPHILS % 0.8 % (0.0-2.0); EOSINOPHILS % 1.2 % (0.0-5.0); HEMATOCRIT. 35.7 % (42.0-52.0); HEMOGLOBIN. 11.5 g/dL (14.0-18.0); LYMPHOCYTES % 27.4 % (20.0-50.0); MEAN CORPUSCULAR HEMOGLOBIN 29.9 pg (28.0-32.0); MEAN CORPUSCULAR VOLUME 92.6 fL (80.0-94.0); MEAN PLATELET VOLUME 8.6 fl (7.4-10.4); MONOCYTES % 10.6 % (2.0-8.0); PLATELET 136 x1000/uL (130-400); RED BLOOD CELL COUNT 3.86 mill/uL (4.7-6.1); RED CELL DISTRIBUTION WIDTH 21.4 % (11.6-14.6)
[2019-06-19 21:51] LABS: CHLORIDE 99 mEq/L (98-107)
[2019-06-19 21:54] LABS: INR 1.2; PARTIAL THROMBOPLASTIN TIME 28.9 sec (23.4-31.0)
[2019-06-19] MEDS ORDERED: CALCIUM GLUCONATE 1,000 MG in DEXTROSE 5% WATER 50 ML IV ONE (22:45)
[2019-06-19] MEDS ORDERED: SODIUM POLYSTYRENE SULFONATE 15 G/60 ML BOT PO ONE (22:45)
[2019-06-19] MEDS ORDERED: ALBUTEROL (0.083%) 2.5MG/3ML NEB HHN ONE (22:45)
[2019-06-19] MEDS ORDERED: DEXTROSE 50% WATER 50ML SYRINGE IV ONE (22:45)
[2019-06-19] MEDS ORDERED: SODIUM BICARBONATE 8.4% 1 MEQ/ML 50ML SYR IV ONE (22:45)
[2019-06-20] VITALS (11 sets, daily range): BP systolic 131–170; BP diastolic 53–101
[2019-06-20] MEDS ORDERED: HEPARIN 5000 UNITS/ML VIAL IV ONE
[2019-06-20] MEDS ORDERED: NITROGLYCERIN OINT 1GM/INCH UDPKT TD ONE (00:15)
[2019-06-20] MEDS ORDERED: HEPARIN BOLUS PRN aPTT 37-44 IV ×2 (00:15→07:30)
[2019-06-20] MEDS ORDERED: HEPARIN 25,000 UNITS PREMIX 500 ML IV SCH ×3 (00:15→06:30)
[2019-06-20] MEDS ORDERED: HEPARIN BOLUS PRN aPTT <36 IV (00:15)
[2019-06-20] MEDS ORDERED: HYDROCODONE/ACETAMINOPHEN 5/325MG TABLET PO PRN (02:00)
[2019-06-20] MEDS ORDERED: ONDANSETRON HCL 4MG/2ML INJ IV PRN (02:00)
[2019-06-20] MEDS ORDERED: ACETAMINOPHEN 325MG TABLET PO PRN (02:00)
[2019-06-20] MEDS ORDERED: DOCUSATE SODIUM 100MG CAPSULE PO PRN (02:00)
[2019-06-20] MEDS ORDERED: CLONIDINE 0.1MG TABLET PO PRN (02:00)
[2019-06-20] MEDS ORDERED: LORAZEPAM 0.5MG TABLET PO PRN (02:00)
[2019-06-20] MEDS ORDERED: IPRATROPIUM/ALBUTEROL 0.5-3(2.5)MG/3ML NEB HHN PRN (02:00)
[2019-06-20] MEDS ORDERED: HEPARIN 25,000 UNITS PREMIX 500 ML IV PRN (06:45)
[2019-06-20] MEDS ORDERED: HEPARIN 5000 UNITS/ML VIAL IV SCH (06:45)
[2019-06-20] MEDS ORDERED: HEPARIN 5000 UNITS/ML VIAL IV PRN (06:45)
[2019-06-20] MEDS: DILTIAZEM HCL 60MG TABLET PO SCH ×3 (07:00→22:10)
[2019-06-20] MEDS: CLONIDINE 0.3MG TABLET PO SCH ×3 (07:43→23:01)
[2019-06-20] MEDS: SEVELAMER CARBONATE 800 MG TABLET PO SCH ×3 (09:00→16:40)
[2019-06-20] MEDS ORDERED: SEVELAMER HCL PO SCH (09:00)
[2019-06-20] MEDS: METOPROLOL TARTRATE 25MG TABLET PO SCH ×2 (09:01→21:00)
[2019-06-20 09:05] LABS: BG BASE EXCESS -1.3 mmol/L (-2.0-2.0); BG CARBOXYHEMOGLOBIN 0.5 % (0.5-1.5); BG DEOXYHEMOGLOBIN 15.3 % (0.0-5.0); BG FRACTION INSPIRED OXYGEN 36; BG HCO3 ACT 21.9 mmol/L (22.0-26.0); BG METHEMOGLOBIN 0.2 % (0.0-1.5); BG OXYGEN SATURATION 84.6 % (92.0-98.5); BG PCO2 31.6 mmHg (35.0-45.0); BG PH 7.459 (7.350-7.450); BG PO2 54.4 mmHg (75.0-100.0); BG SAMPLE SITE RIGHT BRACHIAL; BG TOTAL HEMOGLOBIN 10.8 g/dL (12.0-18.0); BG VENT MODE NASAL CANNULA
[2019-06-20 10:44] LABS: INR 1.2; PROTHROMBIN TIME 12.3 sec (9.6-11.0)
[2019-06-20 10:49] LABS: BASOPHILS % 1.2 % (0.0-2.0); EOSINOPHILS % 1.7 % (0.0-5.0); HEMATOCRIT. 30.8 % (42.0-52.0); HEMOGLOBIN. 10.2 g/dL (14.0-18.0); LYMPHOCYTES % 16.4 % (20.0-50.0); MEAN CORPUSCULAR VOLUME 90.6 fL (80.0-94.0); MEAN PLATELET VOLUME 8.5 fl (7.4-10.4); MONOCYTES % 9.1 % (2.0-8.0); NEUTROPHILS % 71.6 % (40.0-76.0); PLATELET 119 x1000/uL (130-400); RED CELL DISTRIBUTION WIDTH 20.9 % (11.6-14.6)
[2019-06-20] MEDS ORDERED: LIDOCAINE HCL 1% 20ML VIAL (Pyxis) INJ ONE (10:59)
[2019-06-20 11:07] LABS: CHLORIDE 98 mEq/L (98-107)
[2019-06-20 11:15] LABS: HDL CHOLESTEROL 81 mg/dL (40-59); LDL CHOLESTEROL 32 mg/dL (5-100)
[2019-06-20 11:17] LABS: CREATINE KINASE 69 IU/L (39-308)
[2019-06-20 11:22] LABS: CREATINE KINASE MB FRACTION < 1.0 ng/mL (0.5-3.6)
[2019-06-20] MEDS ORDERED: MORPHINE SULFATE 2 MG/ML CPJ (NOT FOR IM USE) IV SCH (13:30)
[2019-06-20] MEDS ORDERED: DIPHENHYDRAMINE 50MG/ML VIAL IV PRN (14:15)
[2019-06-20] MEDS ORDERED: DIPHENHYDRAMINE 50MG/ML VIAL ONE (14:32)
[2019-06-20 17:31] LABS: CREATINE KINASE 75 IU/L (39-308)
[2019-06-20 17:32] LABS: CREATINE KINASE MB FRACTION < 1.0 ng/mL (0.5-3.6)
[2019-06-21] VITALS (12 sets, daily range): BP systolic 105–130; BP diastolic 5–67
[2019-06-21] MEDS: DILTIAZEM HCL 60MG TABLET PO SCH ×3 (05:34→22:00)
[2019-06-21] MEDS: CLONIDINE 0.3MG TABLET PO SCH ×3 (06:39→22:59)
[2019-06-21 07:02] LABS: BASOPHILS % 1.3 % (0.0-2.0); EOSINOPHILS % 4.4 % (0.0-5.0); HEMATOCRIT. 33.3 % (42.0-52.0); HEMOGLOBIN. 11.5 g/dL (14.0-18.0); LYMPHOCYTES % 19.1 % (20.0-50.0); MEAN CORPUSCULAR HEMOGLOBIN 31.1 pg (28.0-32.0); MEAN CORPUSCULAR VOLUME 90.4 fL (80.0-94.0); MEAN PLATELET VOLUME 8.5 fl (7.4-10.4); MONOCYTES % 6.6 % (2.0-8.0); NEUTROPHILS % 68.6 % (40.0-76.0); PLATELET 117 x1000/uL (130-400); RED BLOOD CELL COUNT 3.69 mill/uL (4.7-6.1); RED CELL DISTRIBUTION WIDTH 20.9 % (11.6-14.6)
[2019-06-21] MEDS: SEVELAMER CARBONATE 800 MG TABLET PO SCH ×3 (08:03→18:34)
[2019-06-21] MEDS: METOPROLOL TARTRATE 25MG TABLET PO SCH ×2 (08:03→20:44)
[2019-06-21] MEDS ORDERED: DIPHENHYDRAMINE 50MG/ML VIAL IV NR (09:00)
[2019-06-22] VITALS (23 sets, daily range): BP systolic 95–146; BP diastolic 49–72
[2019-06-22] MEDS: DILTIAZEM HCL 60MG TABLET PO SCH ×2 (06:00→14:00)
[2019-06-22] MEDS: CLONIDINE 0.3MG TABLET PO SCH ×2 (06:00→14:00)
[2019-06-22] MEDS ORDERED: ALTEPLASE 2MG/VIAL ITC ONE (07:00)
[2019-06-22 07:09] LABS: BASOPHILS % 1.1 % (0.0-2.0); EOSINOPHILS % 10.8 % (0.0-5.0); HEMATOCRIT. 29.4 % (42.0-52.0); HEMOGLOBIN. 9.7 g/dL (14.0-18.0); LYMPHOCYTES % 24.2 % (20.0-50.0); MEAN CORPUSCULAR HEMOGLOBIN 30.2 pg (28.0-32.0); MEAN PLATELET VOLUME 8.5 fl (7.4-10.4); MONOCYTES % 8.3 % (2.0-8.0); NEUTROPHILS % 55.6 % (40.0-76.0); PLATELET 100 x1000/uL (130-400); RED BLOOD CELL COUNT 3.23 mill/uL (4.7-6.1); RED CELL DISTRIBUTION WIDTH 21.4 % (11.6-14.6)
[2019-06-22] MEDS: SEVELAMER CARBONATE 800 MG TABLET PO SCH ×2 (07:20→12:20)
[2019-06-22] MEDS ORDERED: CEFAZOLIN 1000MG PREMIX 50 ML IV ONE ×2 (08:45→09:32)
[2019-06-22] MEDS: METOPROLOL TARTRATE 25MG TABLET PO SCH (09:00)
[2019-06-22] MEDS ORDERED: FENTANYL CITRATE/PF 50MCG/ML 2ML VIAL ONE (09:33)
[2019-06-22] MEDS ORDERED: MIDAZOLAM HCL 2 MG/2 ML VIAL ONE (09:33)
[2019-06-22] MEDS ORDERED: SODIUM BICARBONATE 4% (2.4MEQ) 5ML VIAL IV ONE (09:42)
[2019-06-22] MEDS ORDERED: IOHEXOL-300 100 ML BOTTLE ONE (09:43)
[2019-06-22] MEDS ORDERED: LIDOCAINE HCL 1% 20ML VIAL (Pyxis) INJ ONE (09:43)
[2019-06-22] MEDS ORDERED: HEPARIN 1000 UNITS/ML 10ML ONE (09:43)
[2019-06-22] MEDS ORDERED: BUPIVACAINE HCL/PF 0.5% (5MG/ML) 10ML INFIL SCH (10:30)
[2019-06-22] MEDS ORDERED: HEPARIN 5000 UNITS/ML VIAL IV ONE (10:45)
[2019-06-22] MEDS ORDERED: MIDAZOLAM HCL 5 MG/5 ML VIAL IV ONE (11:30)
[2019-06-22] MEDS ORDERED: FENTANYL CITRATE/PF 50MCG/ML 2ML VIAL IV ONE (11:30)
[2019-06-22] MEDS ORDERED: MIDAZOLAM HCL 2 MG/2 ML VIAL IV ONE (11:45)
== END 2019-06-22 17:52 | disposition home or self-care (01) | DRG 181 ==
LOC: ER 18:43 → EDBEDREQTM 06-20 00:04 → EDBEDREQSVC 06-20 00:04 → EDBEDREQDT 06-20 00:04 → 3WST 06-20 00:05 → ENRESERV 06-20 02:00
PROVIDERS: ADMIT Internal Medicine; ATTEND Internal Medicine
PROC: B51W1ZZ Fluoroscopy of Dialysis Shunt/Fistula using Low Osmolar Contrast (ICD-10-PCS; 2019-06-20)
PROC: 06H033Z Insertion of Infusion Device into Inferior Vena Cava, Percutaneous Approach (ICD-10-PCS; 2019-06-20)
PROC: B549ZZA Ultrasonography of Inferior Vena Cava, Guidance (ICD-10-PCS; 2019-06-20)
PROC: B5191ZA Fluoroscopy of Inferior Vena Cava using Low Osmolar Contrast, Guidance (ICD-10-PCS; 2019-06-20)
PROC: 5A1D70Z Performance of Urinary Filtration, Intermittent, Less than 6 Hours Per Day (ICD-10-PCS; 2019-06-20)
PROC: 5A09357 Assistance with Respiratory Ventilation, Less than 24 Consecutive Hours, Continuous Positive Airway Pressure (ICD-10-PCS; 2019-06-20)
PROC: 5A1D70Z Performance of Urinary Filtration, Intermittent, Less than 6 Hours Per Day (ICD-10-PCS; 2019-06-21)
PROC: 5A09357 Assistance with Respiratory Ventilation, Less than 24 Consecutive Hours, Continuous Positive Airway Pressure (ICD-10-PCS; 2019-06-21)
PROC: 5A09357 Assistance with Respiratory Ventilation, Less than 24 Consecutive Hours, Continuous Positive Airway Pressure (ICD-10-PCS; 2019-06-21)
PROC: 04CY3ZZ Extirpation of Matter from Lower Artery, Percutaneous Approach (ICD-10-PCS; principal; 2019-06-22)
PROC: 3E05317 Introduction of Other Thrombolytic into Peripheral Artery, Percutaneous Approach (ICD-10-PCS; 2019-06-22)
PROC: 037Y3ZZ Dilation of Upper Artery, Percutaneous Approach (ICD-10-PCS; 2019-06-22)
PROC: 057Y3ZZ Dilation of Upper Vein, Percutaneous Approach (ICD-10-PCS; 2019-06-22)
DX: T82.41XA Breakdown (mechanical) of vascular dialysis catheter, initial encounter (principal); J96.01 Acute respiratory failure with hypoxia; I13.2 Hypertensive heart and chronic kidney disease with heart failure and with stage 5 chronic kidney disease, or end stage renal disease; N18.6 End stage renal disease; E87.5 Hyperkalemia; I27.20 Pulmonary hypertension, unspecified; I82.819 Embolism and thrombosis of superficial veins of unspecified lower extremity; Z94.0 Kidney transplant status; Z99.2 Dependence on renal dialysis; N28.89 Other specified disorders of kidney and ureter; I70.0 Atherosclerosis of aorta; D64.9 Anemia, unspecified; E78.5 Hyperlipidemia, unspecified; I50.9 Heart failure, unspecified; Z88.9 Allergy status to unspecified drugs, medicaments and biological substances; I34.0 Nonrheumatic mitral (valve) insufficiency; T82.868A Thrombosis due to vascular prosthetic devices, implants and grafts, initial encounter; Y83.8 Other surgical procedures as the cause of abnormal reaction of the patient, or of later complication, without mention of misadventure at the time of the procedure; Y92.89 Other specified places as the place of occurrence of the external cause; R74.0 Nonspecific elevation of levels of transaminase and lactic acid dehydrogenase [LDH]
CPT/HCPCS: 36415; 36600; 36905; 71045; 77001; 78582; 80048; 80061; 80076; 82375; 82550; 82553; 82805; 82962; 83880; 84132; 84443; 84484; 93005; 93306; 93970; 94644; 99152; 99153; 99291; A9558; C1752; C1766; C1769; J0610; J0690; J1200; J1644; J2250; J2270; J2997; J3010; J3490; J7030; J7060; J7611; J7620; Q9967; G0500